=== PATIENT | female | born 1970 | race Caucasian/White ===

== ENCOUNTER → 2019-07-21 10:46 | Outpatient (CLI) | payer OTHER, SELFPAY ==
--- NOTE | 2019-07-21 10:49 | DI.US.S_ITS ---
PROCEDURE: US SOFT TISSUE HEAD AND NECK INDICATIONS: SOFT TISSUE SWELLING SUPERIOR TO RIGHT CALVICLE TECHNIQUE: Real-time scanning was performed of the neck region of interest, with image documentation. COMPARISON: The same region of anatomy left side. FINDINGS: No sonographic abnormality found bilaterally. Specifically no underlying cystic or solid mass is found. If unusual symptomatology persists followup by contrast enhanced MR scanning may be warranted. IMPRESSION: No abnormality found, followup by MR scanning with contrast may be warranted if unusual symptoms persist or increase. Please note that MR scanning may be detected abnormality that ultrasound does not. Dictated by: Mark Tony M.D. on 07/21/2019 at 12:02 Approved by: Mark Tony M.D. on 07/21/2019 at 12:03
== END ==
PROVIDERS: PCP Family Medicine; Visit Provider Family Medicine
DX: M79.89 Other specified soft tissue disorders (principal)
CPT/HCPCS: 76536

== ENCOUNTER → 2020-09-08 12:33 | Outpatient (CLI) | payer MEDICARE, SELFPAY ==
[2020-09-08] MEDS: COVID-19 VACC #1, MRNA(MOD) 100 MCG/0.5 ML VIAL IM (12:41)
== END ==
PROVIDERS: PCP Family Medicine; Visit Provider Internal Medicine
DX: Z23 Encounter for immunization (principal)
CPT/HCPCS: 0011A; 91301

== ENCOUNTER → 2020-10-06 12:33 | Outpatient (CLI) | payer MEDICARE, SELFPAY ==
[2020-10-06] MEDS: COVID-19 VACC #2, MRNA(MOD) 100 MCG/0.5 ML VIAL IM (12:41)
== END ==
PROVIDERS: PCP Family Medicine; Visit Provider Internal Medicine
DX: Z23 Encounter for immunization (principal)
CPT/HCPCS: 0012A; 91301

== ENCOUNTER → 2021-03-27 16:51 | Outpatient (CLI) | payer OTHER, SELFPAY ==
--- NOTE | 2021-03-27 16:53 | DI.RAD.S_ITS ---
PROCEDURE: XR FOOT RT MIN 3V INDICATIONS: Pain TECHNIQUE: 3 views of the foot were acquired. COMPARISON: None. FINDINGS: Bones: Small dorsal calcaneal enthesophyte. Os trigonum and navicular are seen. No acute, displaced fracture or dislocations. No suspicious bony lesions. Soft tissues: No tibiotalar joint effusion. Achilles tendon appears normal. IMPRESSION: No acute osseous abnormality. Dictated by: Sam Sevilla M.D. on 03/28/2021 at 9:52 Approved by: Sam Sevilla M.D. on 03/28/2021 at 9:54
== END ==
PROVIDERS: PCP Family Medicine; Referring Provider Family Medicine; Visit Provider Family Medicine
DX: M79.671 Pain in right foot (principal)
CPT/HCPCS: 73630

== ENCOUNTER → 2021-05-01 12:29 | Outpatient (CLI) | payer OTHER, SELFPAY ==
--- NOTE | 2021-05-01 | DI.RAD.S_ITS ---
PROCEDURE: XR FOOT RT MIN 3V INDICATIONS: Other specified joint disorders, right ankle and foot TECHNIQUE: 3 views of the foot were acquired. COMPARISON: [facility], CR, XR FOOT RT MIN 3V, 03/27/2021, 17:06. FINDINGS: Bones: No fractures or dislocations. No suspicious bony lesions. Retrocalcaneal bone spur. Soft tissues: No tibiotalar joint effusion. Achilles tendon appears normal. IMPRESSION: Prominent retrocalcaneal bone spur; otherwise no definite radiographic abnormality. If pain persists with conservative management, consider cross sectional imaging such as CT or MRI for further assessment. Dictated by: Celestine Lim [facility] Interpreted: Maye Chandra MD on 05/01/2021 at 14:27 Transcribed by: HARSHAL on 05/01/2021 at 14:28 Approved by: Maye Chandra M.D. on 05/01/2021 at 16:15
== END ==
PROVIDERS: PCP Family Medicine; Referring Provider Podiatrist Foot & Ankle Surgery; Visit Provider Podiatrist Foot & Ankle Surgery
DX: M25.871 Other specified joint disorders, right ankle and foot (principal); M77.31 Calcaneal spur, right foot
CPT/HCPCS: 73630

== ENCOUNTER → 2022-08-06 09:34 | Outpatient (CLI) | payer OTHER, SELFPAY ==
[2022-08-06 10:11] LABS: Add Manual Diff / Slide Review NO; Basophils Absolute Auto 100 /uL (0-100); Basophils Percent Auto 1.1 % (0-2); Eosinophils Absolute Auto 100 /uL (0-450); Eosinophils Percent Auto 0.9 % (2-4); Hematocrit 40.4 % (36-46); Hemoglobin 13.9 g/dL (12.0-16.0); Lymphocytes Absolute Auto 1500 /uL (1100-4500); Lymphocytes Percent Auto 25.8 % (25-40); Mean Corpuscular HGB Conc 34.4 % (30-36); Mean Corpuscular Hemoglobin 30.6 PG (26-34); Monocytes Absolute Auto 300 /uL (0-900); Monocytes Percent Auto 5.5 % (3-14); Neutrophils Absolute Auto 4000 /uL (1500-7000); Neutrophils Percent Auto 66.7 % (50-75); Platelet Count 289 X10^3/uL (150-400); Red Blood Cell Count 4.54 X10^6/uL (4.0-5.2); Red Cell Distribution Width 12.7 % (11.6-14.8)
[2022-08-06 10:32] LABS: Alanine Aminotransferase 23 IU/L (<35); Albumin 4.6 g/dL (3.5-5.0); Albumin Globulin Ratio 1.4 (1.0-2.8); Alkaline Phosphatase 73 U/L (38-126); Aspartate Aminotransferase 22 IU/L (14-36); BUN Creatinine Ratio 19.7 (6-22); Bilirubin Total 0.7 mg/dL (0.2-1.3); Blood Urea Nitrogen 13 mg/dL (7-17); Calcium 9.6 mg/dL (8.4-10.2); Carbon Dioxide 25 mmol/L (22-32); Chloride 107 mmol/L (98-107); Cholesterol 151 mg/dL (140-199); Estimated Glomerular Filt Rate > 60 mL/min (>60); Globulin 3.2 g/dL (1.7-4.1); Glucose 96 mg/dL (70-100); HDL Cholesterol 45 mg/dL (40-60); HEMOLYSIS < 15 (0-50); LDL Cholesterol Calculated 95 mg/dL (<100); Lipase 85 U/L (23-300); Sodium 141 mmol/L (137-145); Total Protein 7.8 g/dL (6.3-8.2); Triglycerides 56 mg/dL (35-150)
[2022-08-06 11:48] LABS: TSH w/ Reflex to FT4 2.24 uIU/mL (0.47-4.68)
== END ==
PROVIDERS: PCP Family Medicine; Referring Provider Family Medicine; Visit Provider Family Medicine
DX: E66.9 Obesity, unspecified (principal); Z13.6 Encounter for screening for cardiovascular disorders; Z13.9 Encounter for screening, unspecified; Z13.29 Encounter for screening for other suspected endocrine disorder
CPT/HCPCS: 36415; 80053; 80061; 83690; 84443; 85025

== ENCOUNTER → 2023-02-25 10:35 | Outpatient (CLI) | payer OTHER, SELFPAY ==
--- NOTE | 2023-02-25 10:36 | DI.RAD.S_ITS ---
PROCEDURE: XR CERVICAL SPINE 2V OR 3V INDICATIONS: Persistent neck pain with radiculopathy TECHNIQUE: 3 view(s) of the cervical spine were acquired. COMPARISON: None. FINDINGS: Bones: No fractures or dislocations to the C7 level. The lateral masses of C1 appear intact on the odontoid view. No suspicious bony lesions. Moderate multilevel degenerative changes with disc height loss, endplate spurring, and facet arthropathy. Soft tissues: No prevertebral soft tissue swelling. IMPRESSION: Multilevel degenerative changes of the cervical spine. Dictated by: Celso Sawant M.D. on 02/25/2023 at 15:31 Approved by: Celso Sawant M.D. on 02/25/2023 at 15:32
--- NOTE | 2023-02-25 10:36 | DI.RAD.S_ITS ---
PROCEDURE: XR FOOT RT MIN 3V INDICATIONS: progressive atraumatic right foot pain TECHNIQUE: 3 views of the foot were acquired. COMPARISON: [facility], CR, XR FOOT RT MIN 3V, 05/01/2021, 13:41. [facility], CR, XR FOOT RT MIN 3V, 03/27/2021, 17:06. FINDINGS: Bones: No fractures or dislocations. No suspicious bony lesions. Posterior calcaneal spur as before. Soft tissues: No tibiotalar joint effusion. IMPRESSION: No acute osseous abnormality. If symptoms persist, follow-up radiographs and/or CT or MRI may be helpful for further evaluation. Dictated by: Celso Sawant M.D. on 02/25/2023 at 15:29 Approved by: Celso Sawant M.D. on 02/25/2023 at 15:31
== END ==
PROVIDERS: Family Provider Family Medicine; PCP Family Medicine; Referring Provider Family Medicine; Visit Provider Family Medicine
DX: M47.812 Spondylosis without myelopathy or radiculopathy, cervical region (principal); M54.2 Cervicalgia; M77.31 Calcaneal spur, right foot; M79.671 Pain in right foot; G89.29 Other chronic pain
CPT/HCPCS: 72040; 73630

== ENCOUNTER → 2023-12-12 12:39 | Outpatient (CLI) | payer OTHER, SELFPAY ==
--- NOTE | 2023-12-12 12:43 | DI.MRI.S_ITS ---
PROCEDURE: MR HIP RT WO CON INDICATIONS: BILATERAL HIP PAIN / HIP ADUCTOR TENDINITIS LEFT TECHNIQUE: Noncontrast coronal T1 spin echo and STIR through the bony pelvis. Coronal and axial T2 fast spin echo with fat saturation, sagittal T1 spin echo, and oblique axial T2 fast spin echo with fat saturation through the hip. COMPARISON: None. FINDINGS: Image quality: Excellent. Bones and joints: Mild right hip joint osteoarthritis with superior joint space narrowing and subchondral sclerosis. No intraosseous lesions or fractures. No avascular necrosis of the femoral heads. The visualized lower lumbar spine appears normally aligned. Tendons and ligaments: Low-grade partial-thickness tear involving distal right gluteus medius tendon at its insertion on greater trochanter is seen. Distal right gluteus minimus tendinosis is also noted. The nearby proximal iliotibial band also appears intact. The iliopsoas tendon appears intact, without adjacent bursal fluid collections or evidence for impingement syndrome. Tendinosis involving right hamstring tendons at ischial tuberosity is seen. There is also thickened right adductor saulo and brevis tendons at the level of lesser trochanter. Labrum and cartilage: The acetabular labrum appears intact in the absence of intra-articular contrast. Cartilage surface of the femoral head appears of normal thickness. The alpha angle of the femur is within normal limits at less than 55 degrees. Soft tissues: Visualized muscles demonstrate normal bulk and internal signal. Quadratus femoris muscle demonstrates no internal edema to suggest ischiofemoral impingement. The proximal sciatic neurovascular bundle appears normal adjacent to the hamstring tendons. No free pelvic fluid. Bladder wall thickness is normal. Genitourinary structures and bowel loops appear normal where visualized. IMPRESSION: 1. Mild right hip joint osteoarthritis. No fracture or dislocation. No evidence of avascular necrosis. 2. Low-grade partial-thickness tear involving distal right gluteus medius tendon. Distal right gluteus minimus tendinosis. Tendinosis involving right hamstring tendon origins at ischial tuberosity. Tendinosis and low-grade partial-thickness tear involving lateral portion of right adductor saulo and brevis tendons at the level of lesser trochanter. 3. No obvious right hip labral tear. Dictated by: Dalton Jaimes M.D. on 12/12/2023 at 17:28 Approved by: Dalton Jaimes M.D. on 12/12/2023 at 17:33
--- NOTE | 2023-12-12 12:43 | DI.MRI.S_ITS ---
PROCEDURE: MR HIP LT W CON INDICATIONS: BILATERAL HIP PAIN / HIP ADUCTOR TENDINITIS LEFT TECHNIQUE: After the administration of 10 mL of dilute intra-articular Gadolinium contrast, coronal STIR of the bony pelvis; coronal and oblique axial T1 spin echo with fat saturation, axial T2 fast spin echo with fat saturation, sagittal T1 spin echo with and without fat saturation of the involved hip. COMPARISON: None. FINDINGS: Image quality: Excellent. Bones and joints: Mild left hip joint osteoarthritis is seen with joint space narrowing and mild subchondral sclerosis. No intraosseous lesions or fractures. No avascular necrosis of the femoral head. The visualized lower lumbar spine appears normally aligned. The ligamental, neck, and labral plicae appear normal where visualized. Tendons and ligaments: Mild distal left gluteus medius and minimus tendinosis at their insertions on greater trochanter is seen. The nearby proximal iliotibial band also appears intact. The iliopsoas tendon appears intact, without adjacent bursal fluid collections or evidence for impingement syndrome. The origin of the hamstring tendon is intact at the ischial tuberosity. Labrum and cartilage: There is subtle contrast extension involving superior anterior left hip labrum suggestive of superior anterior labral tear. No paralabral cysts. The alpha angle of the femur is within normal limits at less than 55 degrees. Soft tissues: Visualized muscles demonstrate normal bulk and internal signal. Quadratus femoris muscle demonstrates no internal edema to suggest ischiofemoral impingement. The proximal sciatic neurovascular bundle appears normal adjacent to the hamstring tendons. No free pelvic fluid. Bladder wall thickness is normal. Genitourinary structures and bowel loops appear normal where visualized. IMPRESSION: 1. Subtle superior anterior left hip labral tear. 2. Mild left hip joint osteoarthritis. No marrow edema. No fracture or dislocation. No evidence of avascular necrosis. 3. Mild distal left gluteus medius and minimus tendinosis. No other muscle or tendon signal abnormalities. Dictated by: Dalton Jaimes M.D. on 12/12/2023 at 17:21 Approved by: Dalton Jaimes M.D. on 12/12/2023 at 17:28
--- NOTE | 2023-12-12 12:43 | DI.RAD.S_ITS ---
PROCEDURE: FL HIP INJECTION MR/CT LT INDICATIONS: BILATERAL HIP PAIN / HIP ADUCTOR TENDINITIS LEFT TECHNIQUE: The indications, alternatives, benefits, risks, and complications of the procedure were explained to the patient. Written informed consent was obtained and placed in the chart. The hip was examined fluoroscopically with the legs fixed in slight internal rotation, and a site for needle placement chosen for entry into the hip joint from an anterior approach. Care was taken to locate the common femoral artery and vein beforehand. The skin was prepped and draped in a sterile fashion, and 1% Lidocaine infiltrated from skin down to joint capsule. A spinal needle was inserted into the joint, and a small amount of iodinated contrast media injected to confirm intra-articular placement of the needle tip. This was followed by approximately 10 mL dilute solution of a gadolinium containing MR contrast agent. The needle was removed and a dressing was applied. The patient was given postprocedural instructions and sent to the MR suite for imaging. COMPARISON: [facility], MR, MR HIP RT WO CON, 12/12/2023, 14:01. [facility], MR, MR HIP LT W CON, 12/12/2023, 13:13. [facility], CR, XR PELVIS WITH BILATERAL LATERAL HIPS, 11/27/2023, 13:01. FINDINGS: A single fluoroscopic spot image demonstrates intra-articular location of injected iodinated contrast. IMPRESSION: Successful fluoroscopically guided administration of dilute Gadolinium solution into the hip joint for MR arthrogram. Dictated by: Mary Cali M.D. on 12/12/2023 at 14:39 Approved by: Mary Cali M.D. on 12/12/2023 at 14:40
[2023-12-12] MEDS: LIDOCAINE 1% 20 ML INJ (14:18)
[2023-12-12] MEDS: SODIUM CHLORIDE 0.9 % 20 ML VIAL IV (14:18)
== END ==
LOC: RAD 12:40
PROVIDERS: Family Provider Family Medicine; PCP Family Medicine; Referring Provider Orthopaedic Surgery; Visit Provider Orthopaedic Surgery
DX: M16.0 Bilateral primary osteoarthritis of hip (principal); S73.192A Other sprain of left hip, initial encounter; S76.011A Strain of muscle, fascia and tendon of right hip, initial encounter; M25.552 Pain in left hip; M25.551 Pain in right hip; M76.892 Other specified enthesopathies of left lower limb, excluding foot
CPT/HCPCS: 27093; 73525; 73721; 73722; A9579; Q9967

== ENCOUNTER → 2024-05-19 11:05 | Outpatient (CLI) | payer OTHER, SELFPAY ==
[2024-05-19 14:25] LABS: Influenza A - CEPHEID Flu A NEGATIVE (NEGATIVE); Influenza B - CEPHEID Flu B NEGATIVE (NEGATIVE); Respiratory Syncytial Virus Negative (Negative)
[2024-05-19 14:26] LABS: COVID-19 CEPHEID 4-PLEX PCR Negative (Negative)
== END ==
PROVIDERS: Family Provider Family Medicine; PCP Family Medicine; Visit Provider Family Medicine
DX: R05.9 Cough, unspecified (principal); R09.81 Nasal congestion
CPT/HCPCS: 0241U